=== PATIENT | male | born 1995 | race Caucasian/White ===

== ENCOUNTER 2019-09-28 14:51 | Emergency (ER) | payer SELFPAY ==
[~2019-09-28] VITALS: Ht 165.1 cm; Wt 61.2 kg
[2019-09-28 15:00] VITALS: BP 127/45
--- NOTE | 2019-09-28 16:01 | NUR ---
FLU SWAB COLLECTED AND PLACED IN LAB COLLECTION BOX
--- NOTE | 2019-09-28 19:00 | NUR ---
Andrew james in [facility] - 09/28/19 at 1934 by BLUE PT CALLED WITH NO RESPONSE.
--- NOTE | 2019-09-28 19:15 | NUR ---
Andrew james in [facility] - 09/28/19 at 1934 by BLUE PT CALLED, NO RESPONSE.
--- NOTE | 2019-09-28 19:30 | NUR ---
Andrew james in ED - 09/28/19 at 1934 by BLUE PT CALLED NO RESPONSE. PT LEFT WITHOUT BEING SEEN AT 1900.
--- NOTE | 2019-09-28 19:38 | NUR ---
Dr. Zamora examining patient.
--- NOTE | 2019-09-28 19:48 | NUR ---
Patient discharged with v/s stable. Written and verbal after care instructions given and explained. Patient alert, oriented and verbalized understanding of instructions. Ambulatory with steady gait. All questions addressed prior to discharge. ID band removed. Patient advised to follow up with PMD. Rx of TAMIFLU given. Patient educated on indication of medication including possible reaction and side effects. Opportunity to ask questions provided and answered.
[2019-09-28 19:53] VITALS: BP 125/52
== END 2019-09-28 19:48 | disposition home or self-care (01) ==
LOC: MED 14:51
DX: J10.1 Influenza due to other identified influenza virus with other respiratory manifestations (principal); R11.10 Vomiting, unspecified; Z88.0 Allergy status to penicillin
CPT/HCPCS: 87804; 99283

== ENCOUNTER 2020-03-02 02:00 | Emergency (ER) | payer MEDICAID, OTHER ==
[~2020-03-02] VITALS: Ht 170.2 cm; Wt 65.8 kg
[2020-03-02 02:12] VITALS: BP 139/72
[2020-03-02 03:35] VITALS: BP 106/57
== END 2020-03-02 03:35 | disposition home or self-care (01) ==
LOC: MED 02:00
DX: S20.219A Contusion of unspecified front wall of thorax, initial encounter (principal); Z88.0 Allergy status to penicillin; X58.XXXA Exposure to other specified factors, initial encounter; Y93.79 Activity, other specified sports and athletics; Y92.39 Other specified sports and athletic area as the place of occurrence of the external cause; Y99.8 Other external cause status
CPT/HCPCS: 71101; 99283

== ENCOUNTER 2020-05-31 02:04 | Emergency (ER) | payer OTHER ==
[~2020-05-31] VITALS: Ht 167.6 cm; Wt 66.2 kg
[2020-05-31 02:07] VITALS: BP 145/74
[2020-05-31] MEDS ORDERED: KETOROLAC 60 MG/2 ML VIAL IM ONE (02:20)
[2020-05-31 03:33] VITALS: BP 127/74
== END 2020-05-31 03:33 | disposition home or self-care (01) ==
LOC: MED 02:04
DX: S20.212A Contusion of left front wall of thorax, initial encounter (principal); F17.210 Nicotine dependence, cigarettes, uncomplicated; Z88.0 Allergy status to penicillin; Y08.89XA Assault by other specified means, initial encounter; Y93.89 Activity, other specified; Y92.89 Other specified places as the place of occurrence of the external cause; Y99.8 Other external cause status
CPT/HCPCS: 71101; 96372; 99283; J1885

== ENCOUNTER 2020-07-06 23:55 | Emergency (ER) | payer OTHER ==
[~2020-07-06] VITALS: Ht 167.6 cm; Wt 61.2 kg
[2020-07-07 00:12] VITALS: BP 126/61
[2020-07-07] MEDS ORDERED: ONDANSETRON 4 MG ODT PO ONE (00:30)
[2020-07-07 02:16] VITALS: BP 125/60
== END 2020-07-07 02:16 | disposition home or self-care (01) ==
LOC: MED 23:55
DX: S09.93XA Unspecified injury of face, initial encounter (principal); R11.0 Nausea; Z88.0 Allergy status to penicillin; X58.XXXA Exposure to other specified factors, initial encounter; Y93.89 Activity, other specified; Y92.89 Other specified places as the place of occurrence of the external cause; Y99.8 Other external cause status
CPT/HCPCS: 70450; 70486; 99285; Q0162

== ENCOUNTER 2022-06-08 20:29 | Emergency (ER) | payer OTHER ==
[~2022-06-08] VITALS: Ht 170.2 cm; Wt 61.2 kg
[2022-06-08] MEDS ORDERED: KETOROLAC 60 MG/2 ML VIAL IM ONE ×2 (20:35→22:29)
[2022-06-08 20:57] VITALS: BP 118/75
--- NOTE | 2022-06-08 21:04 | NUR ---
TO LOBBY FOLLOWING TRIAGE
[2022-06-08] MEDS ORDERED: ACET-8386 PO (22:36)
[2022-06-08] MEDS ORDERED: IBUP-2213 PO (22:36)
[2022-06-08] MEDS ORDERED: PRED20TA5 PO (22:38)
[2022-06-08 22:50] VITALS: BP 118/75
--- NOTE | 2022-06-08 22:50 | NUR ---
Patient discharged with v/s stable. Written and verbal after care instructions given and explained. Patient alert, oriented and verbalized understanding of instructions. Ambulatory with steady gait. All questions addressed prior to discharge. ID band removed. Patient advised to follow up with PMD. Rx of NORCO, IBUPORFEN, PREDNISONE given. Patient educated on indication of medication including possible reaction and side effects. Opportunity to ask questions provided and answered.
== END 2022-06-08 22:50 | disposition home or self-care (01) ==
LOC: MED 20:29
DX: S20.20XA Contusion of thorax, unspecified, initial encounter (principal); S90.31XA Contusion of right foot, initial encounter; J02.9 Acute pharyngitis, unspecified; M79.602 Pain in left arm; Z88.0 Allergy status to penicillin; V89.2XXA Person injured in unspecified motor-vehicle accident, traffic, initial encounter; Y93.89 Activity, other specified; Y92.89 Other specified places as the place of occurrence of the external cause; Y99.8 Other external cause status
CPT/HCPCS: 96372; 99283; J1885

== ENCOUNTER 2024-02-14 01:53 | Emergency (ER) | payer OTHER ==
[~2024-02-14] VITALS: Ht 170.2 cm; Wt 63.5 kg
[~2024-02-14 01:53] MED LIST: ACET-8905 PO; IBUP-2213 PO; PRED20TA5 PO
[2024-02-14 02:00] VITALS: BP 120/58; PULSE 84; RESP 16; TEMP 97.7; O2SAT 99
[2024-02-14 03:00] VITALS: BP 120/58; PULSE 84; RESP 16; TEMP 97.7; O2SAT 99
[2024-02-14] MEDS ORDERED: MELO-176 PO (04:08)
[2024-02-14] MEDS ORDERED: AZIT250T4 PO (04:08)
[2024-02-14] MEDS ORDERED: PRED20TA5 PO (04:08)
[2024-02-14] MEDS: predniSONE 20 MG TAB PO ONE (04:26)
[2024-02-14] MEDS: KETOROLAC 60 MG/2 ML VIAL IM ONE (04:26)
[2024-02-14 04:52] LABS: FLU A ANTIGEN negative (NEGATIVE); FLU B ANTIGEN negative (NEGATIVE)
== END 2024-02-14 04:18 | disposition home or self-care (01) ==
LOC: MED 01:53
DX: R04.2 Hemoptysis (principal); R07.9 Chest pain, unspecified; Z20.822 Contact with and (suspected) exposure to COVID-19; Z79.1 Long term (current) use of non-steroidal anti-inflammatories (NSAID); Z79.899 Other long term (current) drug therapy; Z88.0 Allergy status to penicillin
CPT/HCPCS: 71046; 87426; 87804; 96372; 99284; J1885; J7512

== ENCOUNTER 2024-03-16 02:50 | Emergency (ER) | payer OTHER ==
[~2024-03-16] VITALS: Ht 167.6 cm; Wt 71.2 kg
[~2024-03-16 02:50] MED LIST changes: +AZIT250T4 PO; +MELO-176 PO
[2024-03-16 02:58] VITALS: BP 118/69; PULSE 98; RESP 16; TEMP 97.7; O2SAT 99
[2024-03-16] MEDS: KETOROLAC 30 MG/ML VIAL IM ONE (03:52)
[2024-03-16] MEDS: ACETAMINOPHEN 325 MG TAB PO ONE (03:52)
[2024-03-16] MEDS: LIDOCAINE 5% 1 EA PATCH TP ONE (03:52)
[2024-03-16] MEDS ORDERED: METH-1681 PO (04:34)
[2024-03-16] MEDS ORDERED: IBUP-2213 PO (04:34)
[2024-03-16] MEDS ORDERED: LID5T TP (04:34)
[2024-03-16] MEDS ORDERED: BENZ200C4 PO (04:34)
[2024-03-16 04:54] VITALS: BP 116/69; PULSE 97; RESP 16; TEMP 97.7; O2SAT 99
== END 2024-03-16 04:54 | disposition home or self-care (01) ==
LOC: MED 02:50
DX: R07.89 Other chest pain (principal); R07.81 Pleurodynia; R05.9 Cough, unspecified; J34.89 Other specified disorders of nose and nasal sinuses; Z79.1 Long term (current) use of non-steroidal anti-inflammatories (NSAID); Z79.899 Other long term (current) drug therapy; Z88.0 Allergy status to penicillin
CPT/HCPCS: 71045; 96372; 99283; J1885